=== PATIENT | female | born 1975 | race Caucasian/White ===

== ENCOUNTER 2018-04-19 14:50 | Emergency (ER) | payer SELFPAY ==
[~2018-04-19] VITALS: Ht 170.2 cm; Wt 97.5 kg
[2018-04-19 15:41] VITALS: BP 140/79
[2018-04-19 15:52] LABS: BILIRUBIN,URINE NEGATIVE (NEG); CLARITY,URINE CLEAR; COLOR,URINE YELLOW; NITRITE,URINE NEGATIVE (NEG); PROTEIN,URINE NEGATIVE (NEG-TRACE); UROBILINOGEN,URINE 0.2 mg/dL (0.2 mg/dL)
[2018-04-19 15:57] LABS: BASO # 0.1 x10^3/uL (0.0-0.2); BASO % 1 % (0-3); EOS # 0.3 x10^3/uL (0.0-0.7); EOS % 3 % (0-3); HEMATOCRIT 41.6 % (36.0-47.0); HEMOGLOBIN 14.4 g/dL (12.0-15.5); LYMPH # 3.1 x10^3/uL (1.0-4.8); LYMPH % 32 % (24-48); MEAN CORPUSCULAR HEMOGLOBIN 31 pg (25-35); MEAN CORPUSCULAR HGB CONC 35 g/dL (31-37); MEAN CORPUSCULAR VOLUME 91 fL (79-100); MONO # 0.6 x10^3/uL (0.0-1.1); MONO % 6 % (0-9); NEUT # 5.6 x10^3uL (1.8-7.7); NEUT % 58 % (31-73); PLATELET COUNT 288 x10^3/uL (140-400); RED BLOOD COUNT 4.59 x10^6/uL (3.50-5.40); RED CELL DISTRIBUTION WIDTH 14.7 % (11.5-14.5); WHITE BLOOD COUNT 9.6 x10^3/uL (4.0-11.0)
[2018-04-19 16:06] LABS: CALCIUM 9.2 mg/dL (8.5-10.1); GFR 61.4; POTASSIUM 3.4 mmol/L (3.5-5.1)
[2018-04-19 16:10] LABS: BACTERIA,URINE FEW /HPF (0-FEW); SQUAMOUS EPITHELIAL CELL,UR MANY /LPF; WBC,URINE OCC /HPF (0-4)
[2018-04-19 16:13] LABS: ALBUMIN 3.9 g/dL (3.4-5.0); TOTAL BILIRUBIN 0.5 mg/dL (0.2-1.0); TOTAL PROTEIN 7.9 g/dL (6.4-8.2)
--- NOTE | 2018-04-19 16:53 | RAD ---
Examination: PELVIS W/TV History: Left-sided pain Comparison/Correlation: None Findings: Transvaginal pelvic ultrasound exam was performed. Transabdominal and transvaginal pelvic ultrasound exam was performed. Transvaginal technique was utilized to better assess the adnexal structures. Uterus measures 6.6 cm x 2.4 cm x 3.9 cm. Endometrial thickness measures 0.34 cm. Small amount of fluid in the endometrium is evident. Myometrium is unremarkable. Nabothian cysts measuring up to 1 cm diameter is present. Right ovary measures 3.3 cm x 2.3 cm x 2 cm. Left ovary measures 5.4 cm x 3.4 cm x 3.1 cm. Right adnexal thinly septated complex cyst measuring 2.7 cm 1.18 x 1.4 cm is present. Right adnexal complex cyst measuring 4.7 cm x 2 cm x 2.3 cm is present. Left adnexal complicated cyst measuring 4.17 x 2.18 x 4.4 cm is present. Small amount of pelvic free fluid is present. No solid mass lesions identified. Impression: Bilateral complicated adnexal cyst. Possibly of the larger of the right adnexal cystic structures representing hydrosalpinx is raised. No solid mass lesions identified. Interval follow-up pelvic ultrasound exam to assess stability in 3-4 months should be considered. Electronically signed by: Faizan Noyola MD (04/19/2018 4:50 PM) [facility]
--- NOTE | 2018-04-19 17:44 | PHYS DOC ---
Past Medical History Past Medical History: Asthma Past Surgical History: No Surgical History Alcohol Use: Occasionally Drug Use: None Adult General Chief Complaint Chief Complaint: ABDOMINAL PAIN HPI HPI Patient is a 42 year old female who presents with pelvic pain to the left. The patient states that she was was diagnosed with gonorrhea in December. She could possibly have been exposed to another STD. She does have some vaginal discharge. She states that she has been diagnosed in the past with an ovarian cyst. She denies nausea, vomiting or diarrhea. She denies constipation. She denies fever or dysuria. Review of Systems Review of Systems Constitutional: Denies fever or chills [] Respiratory: Denies cough or shortness of breath [] Cardiovascular: No additional information not addressed in HPI [] GI: See history of present illness : Denies dysuria or hematuria [] Musculoskeletal: Denies back pain or joint pain [] Integument: Denies rash or skin lesions [] Neurologic: Denies headache, focal weakness or sensory changes [] Endocrine: Denies polyuria or polydipsia [] All other systems were reviewed and found to be within normal limits, except as documented in this note. Current Medications Current Medications Current Medications Medications (Trade) Dose Ordered Sig/Jasmina Start Time Stop Time Status Last Admin Dose Admin Azithromycin (Zithromax) 1,000 mg 1X ONCE 04/19/18 18:00 04/19/18 18:01 DC 04/19/18 17:50 1,000 MG Ceftriaxone Sodium 1 gm/ Dextrose 50 ml @ 100 mls/hr Q24H 04/19/18 17:30 04/19/18 17:34 DC Ceftriaxone Sodium 50 ml @ 100 mls/hr 1X ONCE 04/19/18 18:00 04/19/18 18:26 DC 04/19/18 17:50 100 MLS/HR Allergies Allergies Allergies Coded Allergies Type Severity Reaction Last Updated Verified No Known Drug Allergies 04/19/18 No Physical Exam Physical Exam Constitutional: Well developed, well nourished, no acute distress, non-toxic appearance. [] Cardiovascular:Heart rate regular rhythm, no murmur [] Lungs & Thorax: Bilateral breath sounds clear to auscultation [] Abdomen: Bowel sounds normal, soft, mild suprapubic tenderness, no masses, no pulsatile masses. [] Skin: Warm, dry, no erythema, no rash. [] Back: No tenderness, no CVA tenderness. [] Extremities: No tenderness, no cyanosis, no clubbing, ROM intact, no edema. [] Neurologic: Alert and oriented X 3, normal motor function, normal sensory function, no focal deficits noted. [] Psychologic: Affect normal, judgement normal, mood normal. [] Current Patient Data Vital Signs Vital Signs Date Time Temp Pulse Resp B/P (MAP) Pulse Ox O2 Delivery O2 Flow Rate FiO2 04/19/18 15:41 98.2 82 14 140/79 (99) 99 Room Air 98.2 Lab Values Laboratory Tests Test 04/19/18 15:25 04/19/18 15:33 04/19/18 15:40 Urine Collection Type Unknown Urine Color Yellow Urine Clarity Clear Urine pH 5.0 Urine Specific [place] >=1.030 Urine Protein Negative mg/dL (NEG-TRACE) Urine Glucose (UA) Negative mg/dL (NEG) Urine Ketones (Stick) 15 mg/dL (NEG) Urine Blood Small (NEG) Urine Nitrite Negative (NEG) Urine Bilirubin Negative (NEG) Urine Urobilinogen Dipstick 0.2 mg/dL (0.2 mg/dL) Urine Leukocyte Esterase Negative (NEG) Urine RBC 3-5 /HPF (0-2) Urine WBC Occ /HPF (0-4) Urine Squamous Epithelial Cells Many /LPF Urine Bacteria Few /HPF (0-FEW) Urine Mucus Marked /LPF POC Urine HCG, Qualitative Hcg negative (Negative) White Blood Count 9.6 x10^3/uL (4.0-11.0) Red Blood Count 4.59 x10^6/uL (3.50-5.40) Hemoglobin 14.4 g/dL (12.0-15.5) Hematocrit 41.6 % (36.0-47.0) Mean Corpuscular Volume 91 fL (79-100) Mean Corpuscular Hemoglobin 31 pg (25-35) Mean Corpuscular Hemoglobin Concent 35 g/dL (31-37) Red Cell Distribution Width 14.7 % (11.5-14.5) H Platelet Count 288 x10^3/uL (140-400) Neutrophils (%) (Auto) 58 % (31-73) Lymphocytes (%) (Auto) 32 % (24-48) Monocytes (%) (Auto) 6 % (0-9) Eosinophils (%) (Auto) 3 % (0-3) Basophils (%) (Auto) 1 % (0-3) Neutrophils # (Auto) 5.6 x10^3uL (1.8-7.7) Lymphocytes # (Auto) 3.1 x10^3/uL (1.0-4.8) Monocytes # (Auto) 0.6 x10^3/uL (0.0-1.1) Eosinophils # (Auto) 0.3 x10^3/uL (0.0-0.7) Basophils # (Auto) 0.1 x10^3/uL (0.0-0.2) Sodium Level 143 mmol/L (136-145) Potassium Level 3.4 mmol/L (3.5-5.1) L Chloride Level 105 mmol/L (98-107) Carbon Dioxide Level 27 mmol/L (21-32) Anion Gap 11 (6-14) Blood Urea Nitrogen 18 mg/dL (7-20) Creatinine 1.0 mg/dL (0.6-1.0) Estimated GFR (Cockcroft-Gault) 61.4 BUN/Creatinine Ratio 18 (6-20) Glucose Level 95 mg/dL (70-99) Calcium Level 9.2 mg/dL (8.5-10.1) Total Bilirubin 0.5 mg/dL (0.2-1.0) Aspartate Amino Transferase (AST) 24 U/L (15-37) Alanine Aminotransferase (ALT) 30 U/L (14-59) Alkaline Phosphatase 49 U/L (46-116) Total Protein 7.9 g/dL (6.4-8.2) Albumin 3.9 g/dL (3.4-5.0) Albumin/Globulin Ratio 1.0 (1.0-1.7) Laboratory Tests 04/19/18 15:40 Laboratory Tests 04/19/18 15:40 EKG EKG [] Radiology/Procedures Radiology/Procedures []PATIENT: ELIAS AGUILERACOUNT: [id number]#: [id number] : 1975 LOCATION: ER AGE: 42 SEX: F EXAM STATUS: REG ER ORD. PHYSICIAN: ROBIN WARD APRN REASON: pain to left PROCEDURE: PELVIS W/TV Examination: PELVIS W/TV History: Left-sided pain Comparison/Correlation: None Findings: Transvaginal pelvic ultrasound exam was performed. Transabdominal and transvaginal pelvic ultrasound exam was performed. Transvaginal technique was utilized to better assess the adnexal structures. Uterus measures 6.6 cm x 2.4 cm x 3.9 cm. Endometrial thickness measures 0.34 cm. Small amount of fluid in the endometrium is evident. Myometrium is unremarkable. Nabothian cysts measuring up to 1 cm diameter is present. Right ovary measures 3.3 cm x 2.3 cm x 2 cm. Left ovary measures 5.4 cm x 3.4 cm x 3.1 cm. Right adnexal thinly septated complex cyst measuring 2.7 cm 1.18 x 1.4 cm is present. Right adnexal complex cyst measuring 4.7 cm x 2 cm x 2.3 cm is present. Left adnexal complicated cyst measuring 4.17 x 2.18 x 4.4 cm is present. Small amount of pelvic free fluid is present. No solid mass lesions identified. Impression: Bilateral complicated adnexal cyst. Possibly of the larger of the right adnexal cystic structures representing hydrosalpinx is raised. No solid mass lesions identified. Interval follow-up pelvic ultrasound exam to assess stability in 3-4 months should be considered. Electronically signed by: Faizan Mojica MD (04/19/2018 4:50 PM) [facility] DICTATED and SIGNED BY: FAIZAN MOJICA MD DATE: 04/19/18 1644 Course & Med Decision Making Course & Med Decision Making Pertinent Labs and Imaging studies reviewed. (See chart for details) []The patient was presumptively treated with Rocephin and Zithromax in the emergency department. She did have a hydrosalpinx as well as an ovarian cyst on ultrasound. She is to follow-up with gynecology for further evaluation and treatment. She is in agreement with this plan. She was counseled to abstain from sexual activity for 2 weeks to allow time for the antibiotics to work. I reassured her we will call only with positive cultures. Dragon Disclaimer Dragon Disclaimer This electronic medical record was generated, in whole or in part, using a voice recognition dictation system. Departure Departure Impression: Primary Impression: Ovarian cyst Additional Impression: Possible exposure to STD Disposition: HOME, SELF-CARE Condition: STABLE Referrals: NO PCP (PCP) Patient Instructions: Ovarian Cyst Additional Instructions: Abstain from sexual activity for 2 weeks to allow time for the antibiotics to work. Follow-up with gynecology for further evaluation of your ovarian cysts. Return to the emergency department if worsening. Problem Qualifiers ROBIN WARD APRN Apr 19, 2018 17:44
[2018-04-19] MEDS ORDERED: AZITHROMYCIN 250 MG TABLET. PO ONE (18:00)
== END 2018-04-19 18:20 | disposition home or self-care (01) ==
LOC: ER 14:50
DX: N83.202 Unspecified ovarian cyst, left side (principal); N83.201 Unspecified ovarian cyst, right side; N88.8 Other specified noninflammatory disorders of cervix uteri; J45.909 Unspecified asthma, uncomplicated
CPT/HCPCS: 36415; 76830; 76856; 80053; 81001; 81025; 85025; 87491; 87591; 96365; 99285; J0690; Q0144

== ENCOUNTER 2018-04-26 10:35 | Emergency (ER) | payer SELFPAY ==
[~2018-04-26] VITALS: Ht 170.2 cm; Wt 104.3 kg
[2018-04-26 11:16] VITALS: BP 127/76
--- NOTE | 2018-04-26 12:09 | PHYS DOC ---
Past Medical History Past Medical History: Asthma Past Surgical History: No Surgical History Alcohol Use: Occasionally Drug Use: Marijuana Adult General Chief Complaint Chief Complaint: HAND PROBLEM HPI HPI Patient is a 42 year old female who presents with pain to her left hand. 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 She states that she has pain and swelling to her hand. She does not remember a specific injury. She has not used OTC medications to treat this condition. Review of Systems Review of Systems Constitutional: Denies fever or chills [] Respiratory: Denies cough or shortness of breath [] Cardiovascular: No additional information not addressed in HPI [] GI: Denies abdominal pain, nausea, vomiting, bloody stools or diarrhea [] : Denies dysuria or hematuria [] Musculoskeletal: See history of present illness Integument: Denies rash or skin lesions [] Neurologic: Denies headache, focal weakness or sensory changes [] Endocrine: Denies polyuria or polydipsia [] All other systems were reviewed and found to be within normal limits, except as documented in this note. Current Medications Current Medications Current Medications Medications (Trade) Dose Ordered Sig/Jasmina Start Time Stop Time Status Last Admin Dose Admin Ketorolac Tromethamine (Toradol Im) 60 mg 1X ONCE 04/26/18 12:15 04/26/18 12:16 DC 04/26/18 12:29 60 MG Allergies Allergies Allergies Coded Allergies Type Severity Reaction Last Updated Verified No Known Drug Allergies 04/19/18 No Physical Exam Physical Exam Constitutional: Well developed, well nourished, no acute distress, non-toxic appearance. [] Neck: Normal range of motion, no tenderness, supple, no stridor. [] Cardiovascular:Heart rate regular rhythm, no murmur [] Lungs & Thorax: Bilateral breath sounds clear to auscultation [] Abdomen: Bowel sounds normal, soft, no tenderness, no masses, no pulsatile masses. [] Skin: Warm, dry, no erythema, no rash. [] Back: No tenderness, no CVA tenderness. [] Extremities: mild tenderness tp left hand, no cyanosis, no clubbing, ROM intact , no edema or ecchymosis noted, pulses and sensation are intact. [] Neurologic: Alert and oriented X 3, normal motor function, normal sensory function, no focal deficits noted. [] Psychologic: Affect normal, judgement normal, mood normal. [] Current Patient Data Vital Signs Vital Signs Date Time Temp Pulse Resp B/P (MAP) Pulse Ox O2 Delivery O2 Flow Rate FiO2 04/26/18 11:16 96.8 72 20 127/76 (93) 93 Room Air 96.8 EKG EKG [] Radiology/Procedures Radiology/Procedures [] Course & Med Decision Making Course & Med Decision Making Pertinent Labs and Imaging studies reviewed. (See chart for details) []The patient was given a dose of Toradol in the emergency department for her pain. Dragon Disclaimer Dragon Disclaimer This electronic medical record was generated, in whole or in part, using a voice recognition dictation system. Departure Departure Impression: Primary Impression: Arm pain Disposition: 01 HOME, SELF-CARE Condition: STABLE Referrals: NO PCP (PCP) Patient Instructions: Musculoskeletal Pain Additional Instructions: You may take ibuprofen or Tylenol for pain. Use an ice pack to reduce swelling. Remove the ring until swelling is completely resolved. Follow-up with your primary care provider in one week for recheck if not improving or return to the emergency department if worsening. ROBIN WARD APRN Apr 26, 2018 12:09
[2018-04-26] MEDS ORDERED: KETOROLAC 60 MG/2 ML INJ. IM ONE (12:15)
== END 2018-04-26 12:31 | disposition home or self-care (01) ==
LOC: ER 10:35
DX: M79.602 Pain in left arm (principal); M79.89 Other specified soft tissue disorders; J45.909 Unspecified asthma, uncomplicated
CPT/HCPCS: 96372; 99283; J1885